=== PATIENT | female | born 1975 | race Caucasian/White ===

== ENCOUNTER → 2019-01-01 | Outpatient (CLI) | payer BC, OTHER | LOC: MRI 09:43 | DX: M51.16 Intervertebral disc disorders with radiculopathy, lumbar region (principal); M51.27 Other intervertebral disc displacement, lumbosacral region; M47.26 Other spondylosis with radiculopathy, lumbar region; M47.817 Spondylosis without myelopathy or radiculopathy, lumbosacral region ==

== ENCOUNTER → 2020-09-27 | Outpatient (CLI) | payer OTHER | LOC: ULTRA 11:50 | PROVIDERS: ATTEND Nurse Practitioner | DX: I86.8 Varicose veins of other specified sites (principal); M79.89 Other specified soft tissue disorders ==